=== PATIENT | male | born 1980 ===

== ENCOUNTER 2018-05-31 00:38 | Emergency (ER) | payer SELFPAY ==
[~2018-05-31] VITALS: Ht 177.8 cm; Wt 86.0 kg
[2018-05-31 00:40] VITALS: BP 160/78
[2018-05-31] MEDS ORDERED: DILANTIN (00:43)
--- NOTE | 2018-05-31 01:08 | NUR ---
PT IN INES IN [facility]. PT PROVIDED WARM BLANKET AND UA CUP AND INSTRUCTED TO VOID. PT EDUCATED ON ER PROCESS AND POC AND VERBALIZES UNDERSTANDING. CALL LIGHT IS WITHIN REACH.
[2018-05-31 01:16] LABS: ALANINE AMINOTRANSFERASE 54 U/L (12-78); ALBUMIN 4.1 g/dL (3.4-5.0); ANION GAP 7 mmol/L (5-15); CALCIUM 8.9 mg/dL (8.5-10.1); CHLORIDE 109 mmol/L (98-107); CREATININE 1.07 mg/dL (0.7-1.3)
[2018-05-31 01:18] LABS: ALKALINE PHOSPHATASE 96 U/L (45-117); BILIRUBIN,TOTAL 1.4 mg/dL (0.2-1.0); TOTAL PROTEIN 7.7 g/dL (6.4-8.2)
[2018-05-31 01:34] LABS: BASOPHILS # (AUTO) 0.15 x10^3/uL (0-0.1); BASOPHILS % (AUTO) 1 % (0-1); EOSINOPHILS # (AUTO) 0.19 x10^3/uL (0-0.4); EOSINOPHILS % (AUTO) 1 % (1-7); LYMPHOCYTES # (AUTO) 3.39 x10^3/uL (1-3.4); LYMPHOCYTES % (AUTO) 26 % (22-44); MD NO; MEAN CORPUSCULAR HEMOGLOBIN 30.3 pg (27.5-34.5); MEAN CORPUSCULAR HGB CONC 34.2 g/dL (33.2-36.2); MEAN CORPUSCULAR VOLUME 88.4 fL (81-97); MEAN PLATELET VOLUME 9.2 fL (7.4-10.4); MONOCYTES # (AUTO) 0.75 x10^3/uL (0.2-0.8); MONOCYTES % (AUTO) 6 % (2-9); NEUTROPHILS # (AUTO) 8.67 x10^3/uL (1.8-6.8); NEUTROPHILS % (AUTO) 66 % (42-75); PLATELET COUNT 233 x10^3/uL (130-400); RED BLOOD COUNT 5.45 x10^6/uL (4.38-5.82); RED CELL DISTRIBUTION WIDTH 14.3 % (9.4-14.8)
--- NOTE | 2018-05-31 01:36 | NUR ---
BREAK RN. PT ABLE TO AMBULATE STEADILY TO BATHROOM, ABLE TO PROVIDE URINE SAMPLE. URINE WALKED TO LAB. PT BACK IN [facility]
[2018-05-31 01:38] LABS: MICROSCOPIC AUTO
[2018-05-31 01:39] LABS: CULTURE INDICATED? NO
--- NOTE | 2018-05-31 02:31 | NUR ---
PT D/C WITH D/C SUMMARY. ALL QUESTIONS ANSWERED. PT PROVIDED WITH REFERRAL TO [facility] AND VERBALIZES UNDERSTANDING OF F/U. PT DENIES ANY OTHER NEEDS PERTAINING TO THIS VISIT. PT AMBULATED TO REGISTRATION DESK WITH STEADY GAIT FOR D/C HOME.
== END 2018-05-31 02:48 | disposition home or self-care (01) ==
LOC: ED 02:40
DX: S39.012A Strain of muscle, fascia and tendon of lower back, initial encounter (principal); R10.84 Generalized abdominal pain; F17.200 Nicotine dependence, unspecified, uncomplicated; X58.XXXA Exposure to other specified factors, initial encounter; Y93.89 Activity, other specified; Y92.89 Other specified places as the place of occurrence of the external cause; Y99.8 Other external cause status
CPT/HCPCS: 36415; 80053; 81001; 83690; 85025; 99283